=== PATIENT | female | born 1960 | race Asian ===

== ENCOUNTER 2022-08-03 13:09 | Emergency (ER) | payer OTHER ==
[~2022-08-03] VITALS: Ht 162.6 cm; Wt 65.9 kg
[~2022-08-03 13:09] MED LIST: AMOX1TAB16 PO; CLON-465 PO; LISI-657 PO
[2022-08-03] MEDS ORDERED: ACETAMINOPHEN 500 MG TABLET PO ONE (16:15)
[2022-08-03 16:42] VITALS: BP 156/99
== END 2022-08-03 16:43 | disposition home or self-care (01) ==
LOC: EMS 13:16
DX: G89.18 Other acute postprocedural pain (principal); I10 Essential (primary) hypertension; Z88.6 Allergy status to analgesic agent
CPT/HCPCS: 99282; Z7502; Z7610